=== PATIENT | female | born 1990 | race Caucasian/White ===

== ENCOUNTER → 2017-03-18 | Emergency (ER) | payer BC ==
[~2017-03-18] VITALS: Ht 160 cm; Wt 61.2 kg
[~2017-03-18] MED LIST: TRANEXAMIC ACI650 MG PO
== END ==
LOC: ED 19:28
DX: N93.8 Other specified abnormal uterine and vaginal bleeding (principal); F17.200 Nicotine dependence, unspecified, uncomplicated
CPT/HCPCS: 80053; 81001; 84703; 85025; 96360; 99284; J7030

== ENCOUNTER 2020-09-03 21:02 | Emergency (ER) | payer BC ==
[~2020-09-03] VITALS: Ht 160 cm; Wt 56.2 kg
[2020-09-03] MEDS ORDERED: AMOXICILLIN500 MG PO (21:20)
[2020-09-03] MEDS ORDERED: ANUSOL-HC30 GM PR (21:39)
== END 2020-09-03 21:52 | disposition home or self-care (01) ==
LOC: ED 21:02
DX: K60.0 Acute anal fissure (principal); F17.200 Nicotine dependence, unspecified, uncomplicated
CPT/HCPCS: 99283

== ENCOUNTER 2021-11-11 13:17 | Emergency (ER) | payer OTHER ==
[~2021-11-11] VITALS: Ht 160 cm; Wt 56.4 kg
[~2021-11-11 13:17] MED LIST changes: +AMOXICILLIN500 MG PO; +ANUSOL-HC30 GM PR
[2021-11-11] MEDS ORDERED: NAPROSYN500 MG PO (15:39)
== END 2021-11-11 15:59 | disposition home or self-care (01) ==
LOC: ED 13:17
DX: O03.9 Complete or unspecified spontaneous abortion without complication (principal); F17.200 Nicotine dependence, unspecified, uncomplicated
CPT/HCPCS: 36415; 76801; 76817; 84702; 84703; 86900; 86901; 99284-25

== ENCOUNTER 2024-01-07 07:12 | Inpatient (IN) | payer OTHER ==
[~2024-01-07] VITALS: Ht 160 cm; Wt 68.0 kg
[~2024-01-07 07:12] MED LIST changes: +ACETAMINOPHEN500 MG PO; +IBUPROFEN600 MG PO; +NAPROSYN500 MG PO
[2024-01-07] MEDS ORDERED: ROPIVACAINE 0.2% 200 ML BAG ONE (08:33)
[2024-01-07] MEDS ORDERED: fentaNYL citrate 100 MCG/2 ML VIAL ONE (08:33)
[2024-01-07] MEDS ORDERED: CALCIUM CARBONATE 500 MG CHEW PO PRN ×2 (09:00→12:45)
[2024-01-07] MEDS ORDERED: LACTATED RINGER'S 1,000 ML IV SCH (09:00)
[2024-01-07] MEDS ORDERED: MAGNESIUM HYDROXIDE/AL HYDROX 30 ML CUP PO PRN ×2 (09:00→12:45)
[2024-01-07] MEDS ORDERED: OXYTOCIN/0.9 % SODIUM CHLORIDE 30 UNITS/500 ML BAG IV SCH (09:00)
[2024-01-07 09:03] LABS: HEMATOCRIT 37.7 % (35.0-50.0); HEMOGLOBIN 12.7 g/dL (12.0-18.0); MCH 30.5 (27-36); MCHC 33.7 g/dl (30-36); MCV 90.6 fl (81-99); RBC 4.17 M/ul (4.3-5.7); RDW 15.4 (10.5-15.0)
[2024-01-07 09:10] VITALS: BP 111/78
[2024-01-07] MEDS ORDERED: ePHEDrine sulfate 5 MG/ML SYRINGE IV PRN (09:30)
[2024-01-07] MEDS ORDERED: LACTATED RINGER'S 2,000 ML IV ONE (09:30)
[2024-01-07] MEDS ORDERED: LACTATED RINGER'S 500 ML IV PRN (09:30)
[2024-01-07] MEDS ORDERED: ROPIVACAINE 0.2% 200 ML BAG EPIDURAL SCH (09:30)
[2024-01-07 09:33] LABS: AMPHETAMINES, URINE NEGATIVE (NEGATIVE); BARBITURATES, URINE NEGATIVE (NEGATIVE); BENZODIAZEPINE, URINE NEGATIVE (NEGATIVE); BUPRENORPHINE, URINE NEGATIVE (NEGATIVE); CANNABINOID, URINE NEGATIVE (NEGATIVE); COCAINE, URINE NEGATIVE (NEGATIVE); ECSTASY, URINE NEGATIVE (NEGATIVE); FENTANYL, URINE NEGATIVE (NEGATIVE); METHADONE, URINE NEGATIVE (NEGATIVE); OPIATES, URINE NEGATIVE (NEGATIVE); OXYCODONE, URINE NEGATIVE (NEGATIVE); PHENCYCLIDINE, URINE NEGATIVE (NEGATIVE)
[2024-01-07 09:37] LABS: ABO A; ANTIBODY SCREEN NEGATIVE; RH POSITIVE
[2024-01-07] MEDS ORDERED: ePHEDrine KIT FOR FBC IV ONE (09:55)
[2024-01-07] MEDS ORDERED: ondansetron HCL 4 MG/2 ML VIAL IV PRN (11:45)
[2024-01-07 12:33] LABS: PH, VENOUS 7.241 (7.31-7.41)
[2024-01-07] MEDS ORDERED: HYDROCORTISONE ACETATE 25 MG SUPP PR PRN (12:45)
[2024-01-07] MEDS ORDERED: ACETAMINOPHEN 325 MG TAB PO PRN (12:45)
[2024-01-07] MEDS ORDERED: IBUPROFEN 600 MG TAB PO PRN (12:45)
[2024-01-07] MEDS ORDERED: OXYTOCIN/0.9 % SODIUM CHLORIDE 500 ML IV SCH (12:45)
[2024-01-07] MEDS ORDERED: diphenhydrAMINE HCL 25 MG CAP PO PRN (12:45)
[2024-01-07] MEDS ORDERED: BENZOCAINE 60 ML AEROSOL TOP PRN (12:45)
[2024-01-07] MEDS ORDERED: WITCH HAZEL/GLYCERIN 1 EA PAD TOP PRN (12:45)
[2024-01-07] MEDS ORDERED: MAGNESIUM HYDROXIDE 30 ML UDC PO PRN (12:45)
[2024-01-07] MEDS ORDERED: HYDROCODONE/ACETA 5/325 TAB PO PRN (12:45)
[2024-01-07] MEDS ORDERED: OXYCODONE HCL 5 MG TAB PO PRN (12:45)
[2024-01-07] MEDS ORDERED: SENNOSIDES/DOCUSATE 1 EA TAB PO SCH (21:00)
[2024-01-08 05:32] LABS: HEMOGLOBIN 10.5 g/dL (12.0-18.0); MCH 30.7 (27-36); MCHC 33.8 g/dl (30-36); MCV 90.9 fl (81-99); RBC 3.41 M/ul (4.3-5.7); RDW 15.3 (10.5-15.0)
[2024-01-08] MEDS ORDERED: MEASLES,MUMPS&RUBELLA VACCINE 1 VIAL VIAL SUB-Q ONE (13:30)
== END 2024-01-08 13:55 | disposition home or self-care (01) | DRG 807 ==
LOC: FBCO 07:12 → FBC 08:15 → FBCO 01-11 13:52
PROVIDERS: ADMIT Obstetrics & Gynecology; ATTEND Obstetrics & Gynecology
PROC: 10E0XZZ Delivery of Products of Conception, External Approach (ICD-10-PCS; principal; 2024-01-07)
PROC: 4A033R1 Measurement of Arterial Saturation, Peripheral, Percutaneous Approach (ICD-10-PCS; 2024-01-07)
PROC: 3E0R3BZ Introduction of Anesthetic Agent into Spinal Canal, Percutaneous Approach (ICD-10-PCS; 2024-01-07)
PROC: 3E0R33Z Introduction of Anti-inflammatory into Spinal Canal, Percutaneous Approach (ICD-10-PCS; 2024-01-07)
PROC: 10907ZC Drainage of Amniotic Fluid, Therapeutic from Products of Conception, Via Natural or Artificial Opening (ICD-10-PCS; 2024-01-07)
PROC: 0UQMXZZ Repair Vulva, External Approach (ICD-10-PCS; 2024-01-07)
DX: O99.334 Smoking (tobacco) complicating childbirth (principal); Z37.0 Single live birth; O70.0 First degree perineal laceration during delivery; Z3A.39 39 weeks gestation of pregnancy; F17.210 Nicotine dependence, cigarettes, uncomplicated
CPT/HCPCS: 01960; 36415; 80307; 82803; 85027; 86850; 86900; 86901; 90707; A9270; J2405; J2795; J3010; J7121